=== PATIENT | female | born 1955 | race Caucasian/White ===

== ENCOUNTER 2018-07-07 11:11 | Outpatient (CLI) | payer MEDICARE | END 2018-07-07 11:12 | disposition home or self-care (01) | LOC: BICMAMMO 11:11 | PROVIDERS: ATTEND Family Medicine | DX: Z12.31 Encounter for screening mammogram for malignant neoplasm of breast (principal) | CPT/HCPCS: 77063; 77067 ==

== ENCOUNTER 2018-10-18 08:22 | Outpatient (CLI) | payer MEDICARE ==
--- NOTE | 2018-10-18 08:52 | RAD ---
CHEST TWO VIEWS: History: Acute bronchitis. J20.9 Comparison: 05-18-07 FINDINGS: Heart size is within normal limits. Mild increased linear and interstitial markings bilaterally. Old granulomatous disease. No confluent pneumonia or overt edema. IMPRESSION: Mild stable chronic changes. Old granulomatous disease. Atherosclerosis of the aorta. Stable from jaya or study. POS: [facility]
== END 2018-10-18 08:23 | disposition home or self-care (01) ==
LOC: BICRAD 08:22
PROVIDERS: ATTEND Family Medicine
DX: J20.9 Acute bronchitis, unspecified (principal); I70.0 Atherosclerosis of aorta; J98.4 Other disorders of lung
CPT/HCPCS: 36415; 71046; 85025; 86710

== ENCOUNTER 2019-04-13 13:32 | Outpatient (CLI) | payer MEDICARE ==
--- NOTE | 2019-04-13 14:19 | MMO ---
Left Breast MAMMO Unilat Diag DDI LT+YOVANY. CLINICAL HISTORY: Patient is 64 years old and is seen for diagnostic exam and pain in the lower region of the left breast. The patient has no family history of breast cancer. The patient has no personal history of cancer. VIEWS: The views performed were: left craniocaudal with tomosynthesis; left mediolateral oblique with tomosynthesis; and left mediolateral with tomosynthesis. FILMS COMPARED: The present examination has been compared to a prior imaging study performed at [facility] on 07/07/2018. MAMMOGRAM FINDINGS: There are scattered fibroglandular densities. Finding 1: There is no radiographic abnormality in the region of the focal pain in the lower region of the left breast. Patient reported injury while moving furniture for family reunion. Patient reports bruising intially in the lower left breast with the pain. Both the pain and bruising has resolved. Finding 2: There are benign appearing calcifications seen in the left breast. IMPRESSION: FINDING 1: THERE IS NO MAMMOGRAPHIC EVIDENCE OF MALIGNANCY. NEGATIVE IMAGING SHOULD NEVER DETER BIOPSY IF FINDINGS ON CLINICAL EXAM ARE SUSPICIOUS. THE FINDINGS AND RECOMMENDATIONS WERE DISCUSSED WITH THE PATIENT PRIOR TO HER LEAVING THE CENTER. FINDING 2: CALCIFICATIONS IN THE LEFT BREAST ARE BENIGN. A ROUTINE FOLLOW-UP MAMMOGRAM IN 3 MONTHS IS RECOMMENDED. THE RESULTS OF THIS EXAM WERE SENT TO THE PATIENT. ACR BI-RADS Category 2 - Benign finding MAMMOGRAPHY NOTE: 1. A negative mammogram report should not delay a biopsy if a dominant of clinically suspicious mass is present. 2. Approximately 10% to 15% of breast cancers are not detected by mammography. 3. Adenosis and dense breasts may obscure an underlying neoplasm. Reported by: JONATHAN AMATO MD Electonically Signed: [id number]
== END 2019-04-13 13:33 | disposition home or self-care (01) ==
LOC: BICMAMMO 13:32
PROVIDERS: ATTEND Family Medicine
DX: N63.20 Unspecified lump in the left breast, unspecified quadrant (principal)
CPT/HCPCS: 77065; G0279

== ENCOUNTER 2019-07-13 09:05 | Outpatient (CLI) | payer MEDICARE ==
--- NOTE | 2019-07-13 11:00 | MMO ---
Bilateral MAMMO Bilat Screen DDI+YOVANY. CLINICAL HISTORY: Patient is 64 years old and is seen for screening. The patient has no family history of breast cancer. The patient has no personal history of cancer. VIEWS: The views performed were: bilateral craniocaudal with tomosynthesis and bilateral mediolateral oblique with tomosynthesis. FILMS COMPARED: The present examination has been compared to prior imaging studies performed at [facility] on 07/07/2018 and 04/13/2019. This study has been interpreted with the assistance of computer-aided detection. MAMMOGRAM FINDINGS: There are scattered fibroglandular densities. There are stable benign appearing calcifications seen in both breasts. There are no suspicious masses, calcifications or areas of architectural distortion. There are no suspicious masses, suspicious calcifications, or new areas of architectural distortion. IMPRESSION: THERE IS NO MAMMOGRAPHIC EVIDENCE OF MALIGNANCY. A ROUTINE FOLLOW-UP MAMMOGRAM IN 1 YEAR IS RECOMMENDED. THE RESULTS OF THIS EXAM WERE SENT TO THE PATIENT. ACR BI-RADS Category 2 - Benign finding MAMMOGRAPHY NOTE: 1. A negative mammogram report should not delay a biopsy if a dominant of clinically suspicious mass is present. 2. Approximately 10% to 15% of breast cancers are not detected by mammography. 3. Adenosis and dense breasts may obscure an underlying neoplasm. Reported by: CELESTINE JAMIL MD Electonically Signed: [id number]
== END 2019-07-13 09:06 | disposition home or self-care (01) ==
LOC: BICMAMMO 09:05
PROVIDERS: ATTEND Family Medicine
DX: Z12.31 Encounter for screening mammogram for malignant neoplasm of breast (principal)
CPT/HCPCS: 77063; 77067

== ENCOUNTER 2020-03-22 09:12 | Emergency (ER) | payer MEDICARE, OTHER ==
[2020-03-23 12:22] LABS: SARS-CoV-2 MS2 Positive; SARS-CoV-2 N Gene Positive; SARS-CoV-2 S Gene Positive; SARS-CoV-2 orf1ab Positive
== END 2020-03-22 09:35 | disposition home or self-care (01) ==
LOC: ERS 09:12
DX: U07.1 COVID-19 (principal); F31.9 Bipolar disorder, unspecified; Z79.899 Other long term (current) drug therapy
CPT/HCPCS: 99283; U0003; 87635

== ENCOUNTER 2020-07-31 10:25 | Outpatient (CLI) | payer MEDICARE ==
--- NOTE | 2020-07-31 11:27 | MMO ---
Bilateral MAMMO Bilat Screen DDI+YOVANY. CLINICAL HISTORY: Patient is 65 years old and is seen for screening. The patient has no family history of breast cancer. The patient has no personal history of cancer. VIEWS: The views performed were: bilateral craniocaudal with tomosynthesis and bilateral mediolateral oblique with tomosynthesis. FILMS COMPARED: The present examination has been compared to prior imaging studies performed at [facility] on 07/07/2018, 04/13/2019 and 07/13/2019. This study has been interpreted with the assistance of computer-aided detection. MAMMOGRAM FINDINGS: There are scattered fibroglandular densities. Benign calcifications are noted bilaterally. There are no suspicious masses, suspicious calcifications, or new areas of architectural distortion. IMPRESSION: THERE IS NO MAMMOGRAPHIC EVIDENCE OF MALIGNANCY. A ROUTINE FOLLOW-UP MAMMOGRAM IN 1 YEAR IS RECOMMENDED. THE RESULTS OF THIS EXAM WERE SENT TO THE PATIENT. ACR BI-RADS Category 2 - Benign finding MAMMOGRAPHY NOTE: 1. A negative mammogram report should not delay a biopsy if a dominant of clinically suspicious mass is present. 2. Approximately 10% to 15% of breast cancers are not detected by mammography. 3. Adenosis and dense breasts may obscure an underlying neoplasm. Reported by: CINDY SIEGEL MD Electonically Signed: [id number]
== END 2020-07-31 10:26 | disposition home or self-care (01) ==
LOC: BICMAMMO 10:25
PROVIDERS: ATTEND Obstetrics & Gynecology
DX: Z12.31 Encounter for screening mammogram for malignant neoplasm of breast (principal)
CPT/HCPCS: 77063; 77067

== ENCOUNTER 2021-09-03 10:50 | Outpatient (CLI) | payer MEDICARE | END 2021-09-03 10:51 | disposition home or self-care (01) | LOC: BICMAMMO 10:50 | PROVIDERS: ATTEND Obstetrics & Gynecology | DX: Z12.31 Encounter for screening mammogram for malignant neoplasm of breast (principal) | CPT/HCPCS: 77063; 77067 ==

== ENCOUNTER 2022-10-01 10:01 | Outpatient (CLI) | payer MEDICARE | END 2022-10-01 10:02 | disposition home or self-care (01) | LOC: BICMAMMO 10:01 | PROVIDERS: ATTEND Obstetrics & Gynecology | DX: Z12.31 Encounter for screening mammogram for malignant neoplasm of breast (principal) | CPT/HCPCS: 77063; 77067 ==

== ENCOUNTER 2023-07-28 09:18 | Outpatient (CLI) | payer MEDICARE | END 2023-07-28 09:19 | disposition home or self-care (01) | LOC: BICULT 09:18 | PROVIDERS: ATTEND Internal Medicine Nephrology | DX: N18.9 Chronic kidney disease, unspecified (principal); N39.0 Urinary tract infection, site not specified; M32.10 Systemic lupus erythematosus, organ or system involvement unspecified; R78.89 Finding of other specified substances, not normally found in blood; E83.52 Hypercalcemia; I51.9 Heart disease, unspecified; N28.89 Other specified disorders of kidney and ureter | CPT/HCPCS: 76770; 93975 ==

== ENCOUNTER 2023-10-20 10:19 | Outpatient (CLI) | payer MEDICARE | END 2023-10-20 10:20 | disposition home or self-care (01) | LOC: BICMAMMO 10:19 | PROVIDERS: ATTEND Family Medicine | DX: Z12.31 Encounter for screening mammogram for malignant neoplasm of breast (principal) | CPT/HCPCS: 77063; 77067 ==

== ENCOUNTER 2024-10-18 14:45 | Outpatient (CLI) | payer MEDICARE | END 2024-10-18 14:46 | disposition home or self-care (01) | LOC: BICMAMMO 14:45 | PROVIDERS: ATTEND Family Medicine | DX: M81.0 Age-related osteoporosis without current pathological fracture (principal); M85.89 Other specified disorders of bone density and structure, multiple sites | CPT/HCPCS: 77080 ==